=== PATIENT | female | born 2000 | race Caucasian/White ===

== ENCOUNTER 2024-01-27 08:00 | Day surgery (SDC) | payer BC ==
[~2024-01-27 08:00] MED LIST: LACTATED RINGERS 1,000 ML BAG ONE
[2024-01-27] MEDS ORDERED: PROPOFOL 10 MG/ML 20 ML VIAL IV ONE (08:09)
--- NOTE | 2024-02-05 15:53 | OP ---
OPERATIVE REPORT DATE OF SERVICE : 01/27/2024 REQUESTING PHYSICIAN: Dr. Love. BRIEF HISTORY: The patient is a 24-year-old pleasant white female scheduled for a colonoscopy as a part of evaluation of intermittent rectal bleeding for the last several years duration. She has bleeding almost 3 to 4 times a week and usually has history of chronic constipation. PROCEDURE PERFORMED: Colonoscopy. PREOPERATIVE DIAGNOSIS: Intermittent rectal bleeding of several years duration. ANESTHESIA: IV sedation per Anesthesia. DESCRIPTION OF PROCEDURE: After informed consent was obtained from the patient, she was brought into the endoscopy unit. IV conscious sedation was administered by Anesthesia on continuous monitoring. Initial digital rectal examination was normal. The Olympus CF-190 video colonoscope was then inserted into the rectum, gradually advanced into the cecum. Careful examination was performed as the scope was gradually being withdrawn. The ileocecal valve and appendiceal orifice were visualized and appeared normal. The terminal ileum was intubated and 20 cm visualized and appeared normal. Cecum, ascending colon, transverse colon, descending colon, sigmoid colon and rectum appeared normal. In the rectum, retroflexion was performed and very small internal hemorrhoids were noted. The patient tolerated the procedure well. IMPRESSION: 1. Very small internal hemorrhoids. 2. No evidence of colorectal neoplasia. RECOMMENDATIONS: Findings of this examination were discussed with the patient as well as the family. She was advised to start fiber supplements every day and try to regulate her bowel movements and avoid straining and constipation. If she continues to have rectal bleeding, she was advised to follow up in the office. MMODL / IJN: [id number] /
== END 2024-01-27 09:09 ==
LOC: ORWHC2ENDO 08:00
PROVIDERS: ATTEND Internal Medicine Gastroenterology
DX: K62.5 Hemorrhage of anus and rectum
CPT/HCPCS: 45378; 81025